=== PATIENT | female | born 1975 | race Caucasian/White ===

== ENCOUNTER → 2020-06-20 | Outpatient (REF) | payer BC ==
[2020-06-20 14:26] LABS: HEMATOCRIT 36.8 % (36.0-47.0); HEMOGLOBIN 12.1 g/dl (12.0-15.5); MEAN CORPUSCULAR HEMOGLOBIN 30.6 pg (27.0-33.0); MEAN CORPUSCULAR HGB CONC 32.9 g/dl (32.0-36.5); MEAN CORPUSCULAR VOLUME 92.9 fl (80.0-96.0); PLATELET COUNT, AUTOMATED 277 10^3/uL (150-450); RED BLOOD COUNT 3.96 10^6/uL (4.00-5.40); WHITE BLOOD COUNT 7.5 10^3/uL (4.0-10.0)
[2020-06-20 16:03] LABS: HEPATITIS C VIRUS ABY INDEX < 0.0 INDEX (<0.8); HIV 1&2 SCREEN CENTAUR NEGATIVE (NEGATIVE)
[2020-06-20 16:08] LABS: CHLAMYDIA DNA AMPLIFICATION NEGATIVE (NEGATIVE); GC DNA AMPLIFICATION NEGATIVE (NEGATIVE)
== END ==
LOC: M PLALAB 09:00
PROVIDERS: ATTEND Advanced Practice Midwife
DX: O09.511 Supervision of elderly primigravida, first trimester (principal)

== ENCOUNTER → 2020-07-11 | Outpatient (REF) | payer BC | LOC: M PLALAB 08:20 | PROVIDERS: ATTEND Obstetrics & Gynecology | DX: N39.0 Urinary tract infection, site not specified (principal) ==

== ENCOUNTER → 2020-08-07 | Outpatient (CLI) | payer BC | LOC: M WHC 17:46 | PROVIDERS: ATTEND Obstetrics & Gynecology | DX: Z34.82 Encounter for supervision of other normal pregnancy, second trimester (principal); Z3A.18 18 weeks gestation of pregnancy ==

== ENCOUNTER → 2020-09-07 | Outpatient (REF) | payer BC ==
[2020-09-07 10:47] LABS: HEMOGLOBIN A1c 4.7 %
== END ==
LOC: M PLALAB 09:51
PROVIDERS: ATTEND Advanced Practice Midwife
DX: O09.522 Supervision of elderly multigravida, second trimester (principal)

== ENCOUNTER → 2020-09-28 | Outpatient (REF) | payer BC ==
[2020-09-28 13:53] LABS: HEMATOCRIT 35.1 % (36.0-47.0); HEMOGLOBIN 11.4 g/dl (12.0-15.5); MEAN CORPUSCULAR HEMOGLOBIN 30.8 pg (27.0-33.0); MEAN CORPUSCULAR HGB CONC 32.5 g/dl (32.0-36.5); MEAN CORPUSCULAR VOLUME 94.9 fl (80.0-96.0); PLATELET COUNT, AUTOMATED 255 10^3/uL (150-450); WHITE BLOOD COUNT 11.1 10^3/uL (4.0-10.0)
[2020-09-28 15:52] LABS: HEMOGLOBIN A1c 4.6 %
== END ==
LOC: M PLALAB 08:45
PROVIDERS: ATTEND Advanced Practice Midwife
DX: O09.522 Supervision of elderly multigravida, second trimester (principal); Z3A.00 Weeks of gestation of pregnancy not specified

== ENCOUNTER 2020-10-18 09:47 | Inpatient (IN) | payer BC ==
[~2020-10-18] VITALS: Ht 170.2 cm; Wt 102.9 kg
[2020-10-18] MEDS: DOCUSATE SODIUM 100MG CAPSULE PO SCH ×2 (09:00→20:34)
[2020-10-18] MEDS ORDERED: PRENTAB9 PO ×2 (11:20)
[2020-10-18] MEDS ORDERED: ANTA550C PO (11:20)
--- NOTE | 2020-10-18 12:11 | REP ---
INDICATION: BPP W/ CD. COMPARISON: None. TECHNIQUE: Real-time sonographic evaluation of the gravid uterus performed. FINDINGS: Estimated gestational age is29 weeks 0 days, EDC 01/03/2021. Presentation: Transverse Placenta fundal, grade 1, without evidence of placenta previa. heart rate is recorded at 94-129 beats per minute. Amniotic fluid is subjectively normal. PK 14.9, normal range 9.2-23.1. Closed cervical length is measured at 3.0 cm. Biophysical profile score is 2/8, with no points for breathing, tone or movement. SD ratio umbilical artery is 2.52, normal range 2.03-4.22. RI 0.60, normal range 0.53-0.77. There appears to be a 2 vessel umbilical cord. There appears to be a nuchal cord. IMPRESSION: Biophysical profile score 2/8 as discussed in detail above. <Electronically signed by Agustin Serna > 10/18/20 [id number]
[2020-10-18] MEDS ORDERED: LACTATED RINGER'S 1000 ML IV STA (13:22)
[2020-10-18] MEDS ORDERED: MORPHINE PRES-FREE INJ 10 MG/10 ML VIAL (J2274) As Ordered ONE (13:51)
[2020-10-18] MEDS ORDERED: OXYTOCIN INJ 10 UNITS/ML VIAL (J2590) As Ordered ONE (13:52)
[2020-10-18] MEDS ORDERED: ceFAZolin 2 GM/D5W 50 ML IV BAG (J0690 PER 500MG) As Ordered ONE (14:05)
[2020-10-18] MEDS ORDERED: BICITRA 30ML SOLN UDC As Ordered ONE (14:05)
[2020-10-18] MEDS ORDERED: ceFAZolin SOD 2 GM in IV 1 EA IV ONE (14:10)
[2020-10-18] MEDS ORDERED: BICITRA 30ML SOLN UDC PO ONE (14:10)
[2020-10-18 14:16] LABS: HEMOGLOBIN 12.8 g/dl (12.0-15.5); MEAN CORPUSCULAR HEMOGLOBIN 31.7 pg (27.0-33.0); MEAN CORPUSCULAR HGB CONC 33.7 g/dl (32.0-36.5); MEAN CORPUSCULAR VOLUME 94.1 fl (80.0-96.0); PLATELET COUNT, AUTOMATED 270 10^3/uL (150-450); RED BLOOD COUNT 4.04 10^6/uL (4.00-5.40); WHITE BLOOD COUNT 13.1 10^3/uL (4.0-10.0)
[2020-10-18] MEDS ORDERED: NALBUPHINE HCL 10 MG/ML AMP (J2300) IV PRN (14:18)
[2020-10-18] MEDS ORDERED: diphenhydrAMINE 50MG/ML VIAL (J1200) IV PRN (14:18)
[2020-10-18] MEDS ORDERED: ONDANSETRON 4MG/2ML VIAL IV PRN ×3 (14:18→15:25)
[2020-10-18] MEDS ORDERED: METOCLOPRAMIDE INJ 10MG/2ML VIAL (J2765 PER 1) IV PRN ×2 (14:18→15:25)
[2020-10-18] MEDS ORDERED: NALOXONE INJ 0.4MG/1ML VIAL (J2310 PER 1MG) IV PRN ×2 (14:18)
[2020-10-18] MEDS ORDERED: dexameTHASONE 4 MG/ML 1ML VIAL (J1100 PER 1MG) As Ordered ONE (14:27)
[2020-10-18] MEDS ORDERED: METOCLOPRAMIDE INJ 10MG/2ML VIAL (J2765 PER 1) As Ordered ONE (14:27)
[2020-10-18] MEDS ORDERED: ONDANSETRON 4MG/2ML VIAL As Ordered ONE (14:27)
[2020-10-18] MEDS ORDERED: KETOROLAC 60MG 2ML VIAL As Ordered ONE (14:33)
[2020-10-18 14:37] LABS: CORD GAS ABE V -4.3; CORD GAS HCO3 V 19.8 MEQ/L; CORD GAS O2 SAT V 90.6 %; CORD GAS PCO2 V 34.3 mmHg; CORD GAS PH V 7.38 UNITS; CORD GAS SBC V 20.8 MEQ/L; CORD GAS TCO2 V 20.9 MEQ/L
[2020-10-18] MEDS ORDERED: KETOROLAC 30 MG/ML 1ML VIAL IV PRN (14:40)
[2020-10-18] MEDS ORDERED: RHOGAM 300 MCG (1500 IU) INJ (J2790) IM SCH (14:45)
[2020-10-18] MEDS ORDERED: ONDANSETRON 4 MG ORAL DISINTEGRATING TAB PO PRN (14:45)
[2020-10-18] MEDS ORDERED: ACETAMINOPHEN TAB 650MG DOSE (2X325MG) PO PRN (14:45)
[2020-10-18] MEDS ORDERED: SIMETHICONE 80MG CHEW TAB PO PRN (14:45)
[2020-10-18] MEDS ORDERED: PERCOCET 5MG/325MG TAB PO PRN ×3 (14:45→15:25)
[2020-10-18] MEDS ORDERED: METHYLERGONOVINE MALEATE 0.2 MG TAB PO PRN (14:45)
[2020-10-18] MEDS ORDERED: MEASLES,MUMPS,RUBELLA VACCINE INJ (MMR-II) (90707) SC SCH (14:45)
[2020-10-18] MEDS ORDERED: ACETAMINOPHEN 500 MG TAB PO PRN (14:45)
[2020-10-18] MEDS ORDERED: OXYTOCIN DRIP 30 UNITS in IV 1 EA IV SCH (14:45)
[2020-10-18] MEDS ORDERED: fentaNYL 100 MCG/2 ML INJECTION (J3010) IV PRN (15:25)
[2020-10-18] MEDS ORDERED: LR 1,000 ML IV SCH (15:25)
[2020-10-18] MEDS ORDERED: OXYTOCIN 30 UNITS IN 0.9% NaCl 500ML IV BAG (J2590) As Ordered ONE (15:30)
[2020-10-18] MEDS: LR 1,000 ML IV SCH ×2 (15:31→20:46)
--- NOTE | 2020-10-18 16:42 | RO ---
OPERATIVE NOTE DATE OF OPERATION: 10/18/2020 Patsy is a 45-year-old female, 5, para 2-0-2-2, who was admitted at 29 weeks gestation after presenting with a nonreassuring heart tracing. She has been diagnosed with Down syndrome with this confirmed with amniocentesis who presented with biophysical profile of 2/10. After extensive counseling, decision was made to proceed with the low transvere section. Her record reviewed, all the risks and benefits discussed with the patient as well as center consultation. PREOPERATIVE DIAGNOSIS: 1. Intrauterine at 29 weeks gestation. 2. Nonreassuring heart rate tracing. 3. 2/10 biophysical profile. POSTOPERATIVE DIAGNOSIS: 1. Intrauterine at 29 weeks gestation. 2. Nonreassuring heart rate tracing. 3. 2/10 biophysical profile. 4. Tight nuchal cord x2. PROCEDURE: Primary low transverse section. SURGEON: Cornelius Wolf DO EXPERIENCE DESIGN DIRECTOR: Rosa Maria Hobbs CNM ANESTHESIA: Spinal. COMPLICATIONS: None. ESTIMATED BLOOD LOSS: 400 mL SPECIMEN SENT TO THE LAB: Placenta. FINDINGS: Live female in transverse position delivered via vertex after internal conversion. Both ovaries and tubes appeared to be within normal limits. Baby was cared for by syrup machine laborer. weight is 2 lb, 12 oz., 3 and 6. DESCRIPTION OF PROCEDURE: After obtaining informed consent, the patient was taken to the operating room. Once spinal anesthetic was found to be adequate, she was then draped and prepped in the usual sterile fashion in the prone position. At this point, a Pfannenstiel incision was made. This was carried down to the fascia. With the help of Lisa Hobbs, the fascia was incised in a midline fashion and carried through laterally. Superior and inferior dissection of the peritoneum was then done with good visualization of the bladder. At this point, a Mobius skin retractor was placed. A low transverse uterine incision was made. The was delivered in atraumatic fashion. The nose and mouth were suctioned. The nuchal cord was reduced. The cord was then clamped, cut and the baby was handed over to the awaiting syrup machine laborer. Cord blood and cord gas were sent. The placenta was removed manually. The uterus was cleared of all clot and debris and the uterine incision was then repaired in two separate layers of 0 Vicryl sutures. The pelvis was copiously irrigated with normal saline and suctioned out. Attention was turned to the peritoneum which was closed in a running fashion using 2-0 Vicryl. The fascia was closed in two separate segments of 0 Vicryl sutures. All superficial bleeders were coagulated and the skin was reapproximated in a subcuticular fashion using 3-0 Vicryl on a Denis. Steri-Strips were placed. The patient tolerated the procedure well. She was then transferred to recovery room in stable condition. [facility]
--- NOTE | 2020-10-18 16:58 | HPE ---
HISTORY AND PHYSICAL DATE OF SERVICE: 10/18/2020 HISTORY OF PRESENT ILLNESS: Patsy is a 45-year-old 5, para 2, 0, 2, 2, at 29 weeks gestation, EDC of 01/03/2021 based on first trimester ultrasound. She presents to labor and delivery today following a routine appointment where she was noted to have an NST that was category 2, prolonged decelerations and minimal variability. She denies painful contractions, vaginal bleeding and leakage of fluid. She does report that the baby has been active today; however, decreased from the usual activity. care initiated in the first trimester. course complicated by trisomy 21 confirmed by amniocentesis, advanced maternal age and she did have an initial reactive syphilis where the confirmatory T-pallidium antibodies were nonreactive. OBSTETRIC HISTORY: 1. August 13, 1995 an 8 pound 5 ounce male, vaginal delivery at [facility], 42 weeks gestation. 2. June 30, 1997 an 8 pound 3 ounce male, vaginal delivery at [facility], 41 weeks gestation. 3. Spontaneous miscarriage 2000. 4. Spontaneous miscarriage 2001. OBSTETRIC LABORATORY DATA: Blood type B+. Antibody screen negative. Syphilis reactive with a confirmatory T-pallidium nonreactive. Gonorrhea and chlamydia negative. Hepatitis B surface antigen negative. Hepatitis C antibody non-reactive. HIV nonreactive. Rubella immune. Gestational diabetic screening 77. GBS unknown. She has been seen at the Center for consult due to trisomy 21. She was noted to have a growth ultrasound on 10/11/2020 in the 14th percentile. She did undergo echo on 10/13/2020 returning normal results. PAST MEDICAL HISTORY: 1. Celiac disease. 2. Childhood varicella. PAST SURGICAL HISTORY: Denies past surgeries. FAMILY HISTORY: Celiac, rheumatoid arthritis, diverticulitis. SOCIAL HISTORY: The patient is . She is a former smoker. She denies alcohol and drug use. No history of any sexually transmitted infections and she denies history of abuse physical, sexual and emotional. ALLERGIES: erythromycin. CURRENT MEDICATIONS: vitamin. PHYSICAL EXAMINATION: Temp 97.9, pulse 90, respirations 20, BPP 124/59. Alert and oriented times 3. heart rate is 140 with absent variability, no accelerations, positive decelerations. She did undergo a biophysical profile today: PK 14.9, BP 2/8, 0 points for breathing, tone and movement. SD ratio normal at 2.52. presentation is transverse. Fundal placenta. ASSESSMENT: Intrauterine at 29 plus weeks, heart rate category 2, BPP 2/8, 2/10 with non-reassuring heart rate. PLAN: Per consult with Dr. Cornelius Wolf as well as Dr. Vale from the Center, move towards delivery as soon as possible. Routine laboratories. Bedrest. I.V. fluid bolus. Pre-operative orders. Anesthesia notified. Neonatology notified. [facility] will be en route to stabilize the and transfer to [facility] following delivery. The patient is aware of the plan. Dr. Wolf has counseled her for a section. Reviewed risks, benefits and alternatives. All of her questions have been answered. She has been verbally consented for blood products if they are necessary as well. MARILUZ
[2020-10-18 17:08] VITALS: BP 89/52
[2020-10-18 17:15] VITALS: BP 110/50
[2020-10-18 18:04] VITALS: BP 119/69
[2020-10-18 19:03] VITALS: BP 123/69
[2020-10-18] MEDS: KETOROLAC 30 MG/ML 1ML VIAL IV SCH (20:34)
[2020-10-18] MEDS ORDERED: LR 1,000 ML IV ONE (21:55)
[2020-10-18 22:00] VITALS: BP 110/64
[2020-10-19 02:00] VITALS: BP 97/55
[2020-10-19] MEDS: KETOROLAC 30 MG/ML 1ML VIAL IV SCH ×2 (02:18→10:48)
[2020-10-19 06:00] VITALS: BP 103/55
[2020-10-19] MEDS: LR 1,000 ML IV SCH (06:09)
[2020-10-19 07:05] LABS: HEMATOCRIT 29.5 % (36.0-47.0); HEMOGLOBIN 9.9 g/dl (12.0-15.5); MEAN CORPUSCULAR HEMOGLOBIN 31.7 pg (27.0-33.0); MEAN CORPUSCULAR HGB CONC 33.6 g/dl (32.0-36.5); MEAN CORPUSCULAR VOLUME 94.6 fl (80.0-96.0); PLATELET COUNT, AUTOMATED 222 10^3/uL (150-450); RED BLOOD COUNT 3.12 10^6/uL (4.00-5.40); WHITE BLOOD COUNT 14.4 10^3/uL (4.0-10.0)
[2020-10-19] MEDS ORDERED: BOOSTRIX/ADACEL VACCINE (DIPHTH/PERTUSS/ACELL/TETANUS) 0.5ML SYR IM ONE (08:00)
[2020-10-19] MEDS ORDERED: INFLUENZA QUADRIVALENT PF VACCINE 0.5ML SYRINGE IM ONE (08:00)
[2020-10-19] MEDS ORDERED: PRENATAL VITAMINS CHEWABLE TABLET PO SCH (09:00)
[2020-10-19 10:24] VITALS: BP 94/52
[2020-10-19] MEDS ORDERED: KETOROLAC 30 MG/ML 1ML VIAL As Ordered ONE (10:37)
[2020-10-19] MEDS: DOCUSATE SODIUM 100MG CAPSULE PO SCH (10:44)
[2020-10-19 14:00] VITALS: BP 105/56
[2020-10-19] MEDS ORDERED: IBUP80TA PO (15:15)
[2020-10-19] MEDS ORDERED: PERCOCET PO (15:15)
[2020-10-19] MEDS ORDERED: DOK1CAP7 PO (15:15)
[2020-10-19] MEDS ORDERED: IBUPROFEN 800 MG TAB PO SCH (16:30)
--- NOTE | 2020-10-19 17:26 | DS.PDOC ---
Discharge Summary General Date of Admission Oct 18, 2020 at 13:33 Date of Discharge 10/19/20 Discharge Summary DATE OF ADMISSION: 10/18/2020 DATE OF DISCHARGE: 10/19/2020 ADMISSION DIAGNOSIS: 29+ weeks gestation, fetus with confirmed aneuploidy/trisomy 21, nonreassuring antepartum testing DISCHARGE DIAGNOSIS: Same as above, status post emergent primary low transverse section DISCHARGE SUMMARY: The patient was admitted at 29+ weeks gestation with a diagnosis of abnormal antepartum testing in the setting of confirmed trisomy 21 fetus.. Abnormal testing persisted during her brief antepartum hospital course, which prompted delivery to expedite delivery. The low transverse section delivery was uncomplicated. Her postoperative course was uncomplicated as well. On postoperative day #1, she was meeting all discharge criteria and she was requesting discharge from the hospital so that she may travel to [facility] to be with her baby. PHYSICAL EXAMINATION ON DATE OF DISCHARGE: Normotensive. Normal heart rate. Afebrile. HEART: Regular rate and rhythm. No murmurs, gallops, or rubs. LUNGS: Clear to auscultation bilaterally. ABDOMEN: Soft, nontender, nondistended. Incision bandage clean and dry. EXTREMITIES: Nonedematous, nontender. She was meeting all discharge criteria on postoperative day #1. We reviewed routine fever, infectious, pain, and bleeding precautions. She is to followup in 2 weeks for incision check. Her postoperative medications are Percocet, Motrin, and Colace. Vital Signs/I&Os Vital Signs Date Time Temp Pulse Resp B/P (MAP) Pulse Ox O2 Delivery O2 Flow Rate FiO2 10/19/20 15:44 18 Room Air 10/19/20 14:00 97.2 70 105/56 (72) 100 I&O- Last 24 Hours up to 6 AM 10/19/20 06:00 Intake Total 2080 ml Output Total 1375 ml Balance 705 ml Laboratory Data Labs 24H Laboratory Tests 2 10/19/20 06:48: Nucleated Red Blood Cells % (auto) 0.0 10/19/20 08:14: Lab Scanned Report Mat/Ped HIV Prevention & Care Program CBC/BMP Laboratory Tests 10/19/20 06:48 Discharge Medications Scheduled Docusate Sodium (Dok) 100 Mg Capsule, 100 MG PO BID Ibuprofen (Ibuprofen) 800 Mg Tablet, 800 MG PO Q8H No.137/Iron/Folic Acd ( Vitamin Tablet) 1 Each Tablet, 1 TAB PO DAILY, (Reported) Scheduled PRN Oxycodone/Acetaminophen (Oxycodone-Acetaminophen 5-325) 1 Each Tablet, 1 TAB PO Q4H PRN for MILD/MODERATE PAIN (PS 1-7) Miscellaneous Medications Calcium Carb/Magnesium Hydrox (Antacid Chewable Tablet) 1 Each Tab.chew, 1 CHW PO, (Reported) Allergies Coded Allergies: erythromycin base (Verified Allergy, Unknown, 10/18/20) LESA LEIGH DO Oct 19, 2020 17:26
== END 2020-10-19 15:55 | disposition home or self-care (01) | DRG 540 ==
LOC: M LDO 09:47 → M LDI 13:33 → M OBS 17:05
PROVIDERS: ADMIT Advanced Practice Midwife; ATTEND Obstetrics & Gynecology
PROC: 10D00Z1 Extraction of Products of Conception, Low, Open Approach (ICD-10-PCS; principal; 2020-10-18 14:34)
DX: O76 Abnormality in fetal heart rate and rhythm complicating labor and delivery (principal); Z3A.29 29 weeks gestation of pregnancy; Z37.0 Single live birth; O69.1XX0 Labor and delivery complicated by cord around neck, with compression, not applicable or unspecified

== ENCOUNTER 2020-10-23 18:30 | Emergency (ER) | payer BC ==
[~2020-10-23] VITALS: Ht 170.2 cm; Wt 104.3 kg
[~2020-10-23 18:30] MED LIST: ANTA550C PO; DOK1CAP7 PO; IBUP80TA PO; PERCOCET PO; PRENTAB9 PO
[2020-10-23 21:49] LABS: BASO % 0.5 % (0.0-1.0); EOS # 0.2 10^3/uL (0.0-0.5); EOS % 2.4 % (0.0-3.0); HEMATOCRIT 34.3 % (36.0-47.0); HEMOGLOBIN 11.4 g/dl (12.0-15.5); LYMPH # 2.6 10^3/uL (1.5-5.0); LYMPH % 31.4 % (24.0-44.0); MEAN CORPUSCULAR HEMOGLOBIN 30.7 pg (27.0-33.0); MEAN CORPUSCULAR HGB CONC 33.2 g/dl (32.0-36.5); MEAN CORPUSCULAR VOLUME 92.5 fl (80.0-96.0); MONO # 0.7 10^3/uL (0.0-0.8); MONO % 8.6 % (2.0-8.0); NEUTROPHILS # 4.7 10^3/uL (1.5-8.5); NEUTROPHILS % 56.7 % (36.0-66.0); PLATELET COUNT, AUTOMATED 240 10^3/uL (150-450); RED BLOOD COUNT 3.71 10^6/uL (4.00-5.40); WHITE BLOOD COUNT 8.3 10^3/uL (4.0-10.0)
[2020-10-23 22:04] LABS: BLOOD UREA NITROGEN 10 MG/DL (7-18); CALCIUM LEVEL 9.1 MG/DL (8.5-10.1); CARBON DIOXIDE LEVEL 25 MEQ/L (21-32); CHLORIDE LEVEL 109 MEQ/L (98-107); CREATININE FOR GFR 0.65 MG/DL (0.55-1.30); GLOMERULAR FILTRATION RATE > 60.0 (>58); GLUCOSE, FASTING 78 MG/DL (70-100); MAGNESIUM LEVEL 2.1 MG/DL (1.8-2.4); NT-PRO BNP 517 PG/ML (<125); SODIUM LEVEL 142 MEQ/L (136-145)
[2020-10-23] MEDS ORDERED: ACETAMINOPHEN 325 MG TAB PO ONE (22:55)
--- NOTE | 2020-10-23 22:57 | REPVR ---
PROCEDURE INFORMATION: Exam: US Nonobstetric Pelvis; Complete Exam date and time: 10/23/2020 9:52 PM Age: 45 years old Clinical indication: Pelvic pain; Prior surgery; Surgery date: 3-7 days post-operative; Surgery type: ; Additional info: Post operative c section TECHNIQUE: Imaging protocol: Transabdominal pelvic nonobstetric ultrasound. Complete exam. Real time ultrasound with image documentation. A total of 9 static grayscale images are submitted for remote interpretation, following completion of the examination by the on-site technologist. The medical lab technologist worksheet is available and was reviewed. COMPARISON: US BPP W/O NON STRESS TEST 10/18/2020 11:08 AM Study limitations: Sonographic evaluation is significantly compromised by overlying abdominal wound dressing, limiting optimal acoustic window. FINDINGS: The uterus is not visualized. The ovaries are not visualized. An obvious dominant cystic lesion or fluid collection is not seen within the visualized field of view. Color Doppler interrogation of the visualized pelvis was not performed on this exam. Alternative imaging for consideration could include endovaginal sonographic technique or MRI, as clinically appropriate. IMPRESSION: Significant limitations and findings discussed above. Electronically signed by: Rosendo Sandoval On 10/23/2020 22:56:47 PM
[2020-10-24 00:06] VITALS: BP 133/79
--- NOTE | 2020-10-24 05:40 | ECGEPIP ---
[facility] - ED Test Date: 2020-10-23 Pat Name: MADELYN LANDERSO Department: Room: - Gender: Female Dough Molder: Henok PEREZ : 1975 Requested By: MELCHOR Menchaca Order Number: [id number] Reading MD: Melchor Woodson Measurements Intervals [place] Rate: 52 P: 45 MA: 100 QRS: 40 QRSD: 72 T: 54 QT: 402 QTc: 373 Interpretive Statements Sinus bradycardia with short MA Low voltage QRS Comparison tracing not on file Electronically Signed on 10-24-2020 5:40:19 EDT by Melchor Woodson
== END 2020-10-24 00:11 | disposition home or self-care (01) ==
LOC: M ED 18:30
DX: R60.9 Edema, unspecified (principal); R53.1 Weakness; R00.1 Bradycardia, unspecified; Z79.899 Other long term (current) drug therapy

== ENCOUNTER → 2021-05-25 | Outpatient (REF) ==
[~2021-05-25] MED LIST changes: +DOK1CAP4 PO; -DOK1CAP7 PO
== END ==
LOC: M LABSMTC 13:07
PROVIDERS: ATTEND Pediatrics
DX: Z20.822 Contact with and (suspected) exposure to COVID-19 (principal)

== ENCOUNTER → 2023-05-04 | Outpatient (REF) | payer OTHER ==
[2023-05-04 14:45] LABS: RSV AMPLIFICATION NEGATIVE (NEGATIVE)
== END ==
LOC: M LAB REF 13:59
PROVIDERS: ATTEND Physician Assistant
DX: R50.9 Fever, unspecified (principal)

== ENCOUNTER → 2023-05-26 | Outpatient (CLI) | payer OTHER ==
[2023-05-26 13:47] LABS: BASO % 0.5 % (0.0-1.0); EOS # 0.2 10^3/uL (0.0-0.5); EOS % 2.2 % (0.0-3.0); HEMATOCRIT 42.4 % (36.0-47.0); HEMOGLOBIN 14.2 g/dl (12.0-15.5); LYMPH # 2.1 10^3/uL (1.5-5.0); LYMPH % 25.6 % (24.0-44.0); MEAN CORPUSCULAR HEMOGLOBIN 30.2 pg (27.0-33.0); MEAN CORPUSCULAR HGB CONC 33.5 g/dl (32.0-36.5); MEAN CORPUSCULAR VOLUME 90.2 fl (80.0-96.0); MONO # 0.6 10^3/uL (0.0-0.8); MONO % 7.1 % (2.0-8.0); NEUTROPHILS # 5.2 10^3/uL (1.5-8.5); NEUTROPHILS % 64.4 % (36.0-66.0); PLATELET COUNT, AUTOMATED 301 10^3/uL (150-450); WHITE BLOOD COUNT 8.1 10^3/uL (4.0-10.0)
[2023-05-26 14:00] LABS: ALBUMIN 4.3 G/DL (3.2-5.2); ALKALINE PHOSPHATASE 100 U/L (46-116); ALT/SGPT 22 U/L (7.0-40); AST/SGOT 13 U/L (<34); BILIRUBIN,TOTAL 0.5 MG/DL (0.3-1.2); BLOOD UREA NITROGEN 10 MG/DL (9-23); CALCIUM LEVEL 9.8 MG/DL (8.5-10.1); CARBON DIOXIDE LEVEL 25 MMOL/L (20-31); CHLORIDE LEVEL 105 MMOL/L (98-107); CHOLESTEROL LEVEL 192 MG/DL (<200); CHOLESTEROL RISK RATIO 2.63 (<5); CREATININE FOR GFR 0.66 MG/DL (0.55-1.30); FREE T4 0.96 NG/DL (0.89-1.76); GLOMERULAR FILTRATION RATE > 60.0 (>58); GLUCOSE, FASTING 100 MG/DL (60-100); HDL CHOLESTEROL 72.8 MG/DL (>40); LDL CHOLESTEROL 101.4 MG/DL (<100); NON-HDL-C 119.2 MG/DL; POTASSIUM SERUM 4.5 MMOL/L (3.5-5.1); SODIUM LEVEL 138 MMOL/L (136-145); THYROID STIMULATING HORMONE 0.864 uIU/ML (0.55-4.78); TOTAL PROTEIN 6.9 G/DL (5.7-8.2); TRIGLYCERIDES LEVEL 89 MG/DL (<150)
== END ==
LOC: M PLALAB 09:01
PROVIDERS: ATTEND Internal Medicine
DX: Z76.89 Persons encountering health services in other specified circumstances (principal)

== ENCOUNTER → 2023-06-18 | Outpatient (CLI) | payer OTHER | LOC: M WHC 15:25 | PROVIDERS: ATTEND Internal Medicine | DX: Z12.31 Encounter for screening mammogram for malignant neoplasm of breast (principal) ==

== ENCOUNTER → 2024-07-26 | Outpatient (REF) | payer BC ==
[2024-07-26 13:38] LABS: HEMATOCRIT 41.3 % (36.0-47.0); HEMOGLOBIN 13.9 g/dl (12.0-15.5); MEAN CORPUSCULAR HGB CONC 33.7 g/dl (32.0-36.5); PLATELET COUNT, AUTOMATED 289 10^3/uL (150-450); RED BLOOD COUNT 4.49 10^6/uL (4.00-5.40); WHITE BLOOD COUNT 7.8 10^3/uL (4.0-10.0)
[2024-07-26 13:39] LABS: ALBUMIN 4.1 G/DL (3.2-5.2); ALKALINE PHOSPHATASE 92 U/L (35-104); ALT/SGPT 31 U/L (7.0-40); AST/SGOT 18 U/L (<34); BILIRUBIN,TOTAL 0.3 MG/DL (0.3-1.2); BLOOD UREA NITROGEN 14 MG/DL (9-23); CALCIUM LEVEL 9.7 MG/DL (8.5-10.1); CARBON DIOXIDE LEVEL 28 MMOL/L (20-31); CHLORIDE LEVEL 104 MMOL/L (98-107); CHOLESTEROL LEVEL 165 MG/DL (<200); CHOLESTEROL RISK RATIO 3.06 (<5); CREATININE FOR GFR 0.63 MG/DL (0.55-1.30); GLOMERULAR FILTRATION RATE > 60.0 (>58); GLUCOSE, FASTING 91 MG/DL (60-100); HDL CHOLESTEROL 53.8 MG/DL (>40); NON-HDL-C 111.2 MG/DL; POTASSIUM SERUM 4.4 MMOL/L (3.5-5.1); SODIUM LEVEL 142 MMOL/L (136-145); TOTAL PROTEIN 6.9 G/DL (5.7-8.2); TRIGLYCERIDES LEVEL 91 MG/DL (<150)
[2024-07-26 13:41] LABS: TOTAL 25(OH) VITAMIN D 27.6 NG/ML (20.0-100.0)
[2024-07-26 13:48] LABS: HEMOGLOBIN A1c 4.9 % (4.0-6.0)
== END ==
LOC: M LAB REF 12:19
PROVIDERS: ATTEND Student in an Organized Health Care Education/Training Program
DX: Z00.01 Encounter for general adult medical examination with abnormal findings (principal)

== ENCOUNTER → 2024-12-06 | Outpatient (REF) | payer BC ==
[~2024-12-06] MED LIST changes: +VITALIQ60 MC
[2024-12-06 14:57] LABS: C REACTIVE PROTEIN QUANTITATIV 0.56 MG/DL (<1.0)
[2024-12-06 16:04] LABS: RHEUMATOID FACTOR QUANT < 3.5 IU/ML (<14)
[2024-12-08 16:51] LABS: SSA SJOGRENS A <1.0 NEG AI (<1.0 NEG); SSB SJOGRENS B <1.0 NEG AI (<1.0 NEG)
[2024-12-13 12:57] LABS: HLA-B27 Positive (Negative)
== END ==
LOC: M LAB REF 14:09
PROVIDERS: ATTEND Student in an Organized Health Care Education/Training Program
DX: Z82.61 Family history of arthritis (principal)